=== PATIENT | male | born 1980 | race African-American/Black ===

== ENCOUNTER 2023-07-27 05:47 | Emergency (ER) | payer SELFPAY ==
[~2023-07-27] VITALS: Ht 177.8 cm; Wt 77.0 kg
[2023-07-27 05:48] VITALS: O2SAT 100
[2023-07-27] MEDS ORDERED: LIDOCAINE HCL/EPINEPHRINE 1%-EPI 1:100,000 20 ML VIAL INFIL ONE (06:00)
[2023-07-27] MEDS: TETANUS, DIPHTHERIA, PERTUSSIS VAC/PF 0.5ML (>10YR OLD) IM ONE (06:54)
[2023-07-27] MEDS ORDERED: TOPUD PO (07:31)
[2023-07-27 08:44] VITALS: BP 128/70; PULSE 72; RESP 18; TEMP 98.7
== END 2023-07-27 08:45 | disposition home or self-care (01) ==
LOC: ER 05:47
DX: S01.81XA Laceration without foreign body of other part of head, initial encounter (principal); X58.XXXA Exposure to other specified factors, initial encounter; Y93.89 Activity, other specified; Y92.89 Other specified places as the place of occurrence of the external cause; Y99.8 Other external cause status
CPT/HCPCS: 70450; 72125; 90715; 12004; 90471; 99285; J3490; Z7610

== ENCOUNTER 2024-01-22 19:34 | Emergency (ER) | payer SELFPAY ==
[~2024-01-22] VITALS: Ht 177.8 cm; Wt 82.0 kg
[~2024-01-22 19:34] MED LIST: TOPUD PO
[2024-01-22 19:56] VITALS: O2SAT 100
[2024-01-22] MEDS: LIDOCAINE HCL 1% 20ML VIAL INFIL ONE (22:20)
[2024-01-22] MEDS ORDERED: SULF1TAB48 MT (22:26)
[2024-01-22 23:17] VITALS: BP 124/79; PULSE 87; RESP 18; TEMP 36.55848; O2SAT 100
== END 2024-01-22 23:25 | disposition home or self-care (01) ==
LOC: ER 19:34
DX: L02.411 Cutaneous abscess of right axilla (principal)
CPT/HCPCS: 99283; Z7610 ×2

== ENCOUNTER 2024-01-23 18:40 | Emergency (ER) | payer SELFPAY ==
[~2024-01-23] VITALS: Ht 177.8 cm; Wt 82.0 kg
[~2024-01-23 18:40] MED LIST changes: +SULF1TAB48 MT
[2024-01-23 18:53] VITALS: BP 139/86; PULSE 88; RESP 16; TEMP 98; O2SAT 100
== END 2024-01-23 20:47 | disposition home or self-care (01) ==
LOC: ER 18:40
DX: S41.101A Unspecified open wound of right upper arm, initial encounter (principal); L02.411 Cutaneous abscess of right axilla; X58.XXXA Exposure to other specified factors, initial encounter; Y93.89 Activity, other specified; Y92.89 Other specified places as the place of occurrence of the external cause; Y99.8 Other external cause status
CPT/HCPCS: 10060; 99282